=== PATIENT | male | born 1990 ===

== ENCOUNTER 2018-02-09 07:47 | Day surgery (SDC) | payer MEDICAID ==
[2018-02-09] MEDS ORDERED: Lactated Ringers 1,000 ML IV SCH (08:45)
[2018-02-09] MEDS ORDERED: Propofol 200 MG/20 ML SDV ONE ×3 (09:23→10:39)
[2018-02-09] MEDS ORDERED: fentaNYL 100 MCG/2 ML SDV ONE (09:23)
[2018-02-09] MEDS ORDERED: Midazolam 1 MG/ML 2 ML SDV ONE (09:23)
--- NOTE | 2018-02-10 07:41 | OR ---
DATE OF PROCEDURE: 02/09/2018 PREOP DIAGNOSIS: Anemia. POSTOP DIAGNOSES: 1. Mild gastritis. 2. Gastroesophageal reflux disease. 3. Multiple, at times large rectal polyps. 4. Incomplete colonoscopy. 5. Poor colonoscopy prep. 6. Anemia, etiology unknown. PROCEDURE PERFORMED: 1. Esophagogastroduodenoscopy with antral biopsies for CLOtest and for pathology to look for Helicobacter pylori. 2. Colonoscopy to the right colon with biopsy of large rectal polyps. SURGEON: Deric Harry MD ANESTHESIA: IV anesthesia with monitored anesthesia care. INDICATION: This 27-year-old [place] male has anemia and is referred for upper and lower endoscopy. He lives in a usp. Apparently, four years ago, he underwent upper and lower endoscopy where he was found to have Helicobacter pylori infection, and his guardian was counseled and gave informed consent to proceed with upper and lower endoscopy with possible biopsy and/or polypectomy. DESCRIPTION OF PROCEDURE: The patient was placed in the left lateral decubitus position. IV anesthesia was administered by the Anesthesia Service. Time-out was held. The flexible video Olympus upper endoscope was passed through his mouth down the esophagus, and into his stomach. The stomach was noted to be quite large. The scope was able to be passed through the pylorus into the duodenum. The scope was then slowly withdrawn examining the mucosa throughout. The duodenal mucosa appeared unremarkable. The scope was brought up through the pylorus. There was some mild inflammation in the antrum suggestive of gastritis. There were also fine mucosal irregularities present. These were small lesions. We obtained biopsies of the antrum for CLOtest and for pathology to look for Helicobacter pylori, as well as get an etiology of his mucosa. The scope was retroflexed. The most proximal stomach appeared unremarkable. The scope was straightened and brought up through the GE junction, this was abnormal. The Z-line was not straight. There were also islands of gastric mucosa proximally up in the esophagus. We obtained multiple, totalling at least 6, biopsies of the gastroesophageal junction. The scope was then brought proximally up through remainder of the esophagus, which otherwise appeared unremarkable and it was removed. Next, a rectal exam was performed, which was unremarkable. The flexible video Olympus colonoscope was introduced into his rectum, where we encountered a very large mobile soft polyp. There were multiple other polyps present in the rectum. The mucosal surface also had changes present. The prep was fairly poor. We did aspirate a lot of liquid stool up. We then passed the scope proximally and were able to get up into the right colon, but despite our best efforts, we were unable to reach the cecum. We did do a lot of washing the colon with aspirating of the liquid stool. The scope was then slowly withdrawn examining the mucosa throughout. The colon appeared unremarkable. The rectal changes were again encountered. We biopsied multiple polyps and sent them all to the laboratory as one specimen. The scope was retroflexed with additional distal rectal polyps seen. The scope was straightened and removed. He tolerated the procedure well. Our plan is to get the result of the biopsies and go from there. Deric Harry MD /[id number]
== END 2018-02-09 12:00 | disposition home or self-care (01) ==
LOC: JP.SDS 07:47
PROVIDERS: ATTEND Surgery
DX: K29.50 Unspecified chronic gastritis without bleeding (principal); B96.81 Helicobacter pylori [H. pylori] as the cause of diseases classified elsewhere; K22.70 Barrett's esophagus without dysplasia; K62.1 Rectal polyp; K21.9 Gastro-esophageal reflux disease without esophagitis; D64.9 Anemia, unspecified
CPT/HCPCS: 43239; 45380; 87081; J2250; J2704; J3010; J7120